=== PATIENT | female | born 1970 | race Caucasian/White ===

== ENCOUNTER → 2016-10-05 12:50 | Emergency (ER) | payer BC ==
--- NOTE | 2016-10-05 13:40 | ED ---
Lower Extremity - HPI Summary HPI Summary: Patient presents with 5 days of worsening right knee pain without known injury. She does have a history of OA in this knee with three arthroscopic procedures over the years. She denies SOB, warmth or redness to the leg. She does have calf pain and posterior knee pain. - History of Current Complaint Chief Complaint: EDExtremityLower Stated Complaint: RT KNEE PAIN Time Seen by Provider: 10/05/16 12:57 Hx Obtained From: Patient Mechanism Of Injury: Unknown Onset of Pain: Days Onset/Duration: Still Present Severity Initially: Moderate Severity Currently: Severe Pain Intensity: 8 Timing: Constant Location: Is Discrete @ - right knee Character Of Pain: Dull, Aching, Stiffness Associated Signs And Symptoms: Positive: Swelling, Knee Pain Aggravating Factor(s): Standing, Movement Alleviating Factor(s): Nothing Able to Bear Weight: Yes PMH/Surg Hx/FS Hx/Imm Hx Musculoskeletal History: Reports: Hx Arthritis, Other Musculoskeletal History - obesity Infectious Disease History: No Infectious Disease History: Denies: Traveled Outside the [place] in Last 30 Days - Family History Known Family History: Positive: None - Social History Occupation: Employed Part-time Lives: With Family Alcohol Use: Occasionally Substance Use Type: Reports: None Smoking Status (MU): Former Smoker Cessation Counseling: Patient Advised to Stop Review of Systems Negative: Chest Pain Negative: Shortness Of Breath Positive: Myalgia, Decreased ROM, Edema Negative: Bruising Negative: Headache, Paresthesia, Numbness All Other Systems Reviewed And Are Negative: Yes Physical Exam Triage Information Reviewed: Yes Vital Signs On Initial Exam: Initial Vitals Temp Pulse Resp BP Pulse Ox 97.2 F 81 20 167/104 100 10/05/16 12:54 10/05/16 12:54 10/05/16 12:54 10/05/16 12:54 10/05/16 12:54 Vital Signs Reviewed: Yes Appearance: Positive: Well-Appearing, Pain Distress, Obese Skin: Positive: Warm, Skin Color Reflects Adequate Perfusion, Dry, Soft Head/Face: Positive: Normal Head/Face Inspection Eyes: Positive: EOMI, BOBY, Conjunctiva Clear ENT: Positive: Hearing grossly normal Neck: Positive: Supple, Nontender, No Lymphadenopathy Respiratory/Lung Sounds: Positive: Clear to Auscultation, Breath Sounds Present Cardiovascular: Positive: RRR Musculoskeletal: Positive: Limited @ - extension to 0, flexion to 70 with pain, Pain @ - TTP anterior and posterior knee, Edema Right - body habitus is limiting but possible mild swelling Neurological: Positive: Sensory/Motor Intact, Alert, Oriented to Person Place, Time, NV Bundle Intact Distally Psychiatric: Positive: Affect/Mood Appropriate AVPU Assessment: Alert Diagnostics - Vital Signs Vital Signs Temp Pulse Resp BP Pulse Ox 10/05/16 12:56 98.3 F 87 20 167/104 99 10/05/16 12:54 97.2 F 81 20 167/104 100 - Laboratory Lab Statement: Any lab studies that have been ordered have been reviewed, and results considered in the medical decision making process. - Ultrasound No standard instances Ultrasound Interpretation: No Acute Changes Ultrasound Interpretation Completed By: Radiologist Lower Extremity Course/Dx - Diagnoses Differential Diagnosis/HQI/PQRI: Positive: Arthritis, Bursitis, Cellulitis, Contusion, DVT, Fracture (Closed), Infection, Sprain, Strain Provider Diagnoses: Right knee pain Discharge - Discharge Plan Condition: Stable Disposition: HOME Patient Education Materials: Osteoarthritis (ED) Referrals: Non Staff,Doctor [Primary Care Provider] - Lu Cardona MD [Medical Doctor] - Additional Instructions: Please rest your knee, elevate above your heart and apply ice several times daily to decrease swelling. Continue your Mobic and call your orthopedist or the local orthopedist listed if your symptoms do not begin to improve in the next 7-10 days. Return to the emergency department if symptoms worsen.
--- NOTE | 2016-10-05 13:49 | RAD ---
INDICATION: Multiple days posterior RIGHT knee and calf pain. COMPARISON: No relevant prior exams available on the [facility] PACS for comparison. TECHNIQUE: Hardin scale, color Doppler, and spectral analysis of the deep veins of the RIGHT lower extremity. Vessel compression, phasicity, and augmentation assessed. REPORT: The RIGHT common femoral, great saphenous, profunda femoral, femoral, popliteal, peroneal, and posterior tibial veins are patent. At the medial RIGHT popliteal fossa there is a 3.0 x 1.8 x 1.8 cm cyst with a reticulated pattern of low level internal echoes devoid of intrinsic vascularity consistent with a popliteal cyst with synovitis. Patency of the LEFT common femoral vein documented. IMPRESSION: 1. No evidence for RIGHT lower extremity deep venous thrombosis. 2. Small popliteal cyst with synovitis.
[2016-10-05 14:25] VITALS: BP 137/64
== END | disposition home or self-care (01) ==
LOC: ED 12:50
DX: M71.20 Synovial cyst of popliteal space [Baker], unspecified knee (principal); M25.561 Pain in right knee; Z87.891 Personal history of nicotine dependence
CPT/HCPCS: 99281